=== PATIENT | female | born 1970 | race Caucasian/White ===

== ENCOUNTER 2017-06-24 05:30 | Day surgery (SDC) | payer BC ==
[~2017-06-24] VITALS: Ht 149.9 cm; Wt 66.2 kg
[2017-06-24] MEDS ORDERED: BUPIVACAINE /PF 0.25% 30 ML VIAL INJ ONE (05:31)
[2017-06-24] MEDS ORDERED: SEVOFLURANE 15 MIN GAS INH ONE (05:31)
[2017-06-24] MEDS ORDERED: GLYCOPYRROLATE 0.2 MG/ML VIAL IJ ONE (05:31)
[2017-06-24] MEDS ORDERED: PROPOFOL 200MG/ 20ML VIAL (DIPRIVAN) IV ONE (05:31)
[2017-06-24] MEDS ORDERED: NS IRRIG SOLN 1000 ML IR ONE (05:31)
[2017-06-24] MEDS ORDERED: MIDAZOLAM HCL 5 MG/ML VIAL (VERSED) IV ONE (05:31)
[2017-06-24] MEDS ORDERED: NEOSTIGMINE METHYLSULFATE 1 MG/ML, 10 ML VIAL IVP ONE (05:31)
[2017-06-24] MEDS ORDERED: LR 1,000 ML IV.SOLN IV ONE (05:31)
[2017-06-24] MEDS ORDERED: ONDANSETRON HCL 4 MG/2 ML VIAL IVP ONE (05:31)
[2017-06-24] MEDS ORDERED: fentaNYL CITRATE 250 MCG/5 ML AMP IV ONE (05:31)
[2017-06-24] MEDS ORDERED: ROCURONIUM BROMIDE 10 MG/ML (ZEMURON) IV ONE (05:31)
[2017-06-24] MEDS ORDERED: NS IRRIG SOLN 5000 ML IR ONE (05:31)
[2017-06-24 06:02] LABS: HCG,QUAL RESULT NEGATIVE (NEGATIVE)
[2017-06-24] MEDS ORDERED: CEFAZOLIN SOD 1 GM/ ISO 50 ML PREMIX IV ONE (07:00)
[2017-06-24] MEDS ORDERED: IOHEXOL 0 ML IV ONE (07:59)
[2017-06-24] MEDS ORDERED: LR 1,000 ML IV SCH (07:59)
[2017-06-24] MEDS ORDERED: HYDROmorphone 1 MG INJ. 1 MG/ML AMPUL IVP PRN ×3 (08:00→08:45)
[2017-06-24] MEDS ORDERED: METOCLOPRAMIDE HCL 10 MG/2 ML VIAL IVP PRN (08:00)
[2017-06-24] MEDS ORDERED: HYDROmorphone 2 MG/ML VIAL IVP PRN (08:00)
[2017-06-24] MEDS ORDERED: IOHEXOL 50 ML IV ONE (08:01)
[2017-06-24] MEDS ORDERED: D5/0.45 NS 1,000 ML IV SCH (08:43)
[2017-06-24] MEDS ORDERED: HYDROcodone/ACETAMIN 5-325 MG TAB (NORCO/ VICODIN) PO PRN ×2 (08:45)
[2017-06-24] MEDS ORDERED: HYDROmorphone 2 MG/ML VIAL ONE (09:26)
[2017-06-24 09:48] VITALS: BP_SYST 113
== END 2017-06-24 11:00 | disposition home or self-care (01) ==
LOC: SMU 05:30 → SDS 05:30
PROVIDERS: ATTEND Colon & Rectal Surgery
DX: K80.10 Calculus of gallbladder with chronic cholecystitis without obstruction (principal); J45.909 Unspecified asthma, uncomplicated; F32.9 Major depressive disorder, single episode, unspecified; F41.9 Anxiety disorder, unspecified; K21.9 Gastro-esophageal reflux disease without esophagitis; Z85.820 Personal history of malignant melanoma of skin; Z98.890 Other specified postprocedural states
CPT/HCPCS: 47563; 76000; 84703; 88304; C1727; C1758; J0690; J1170; J2250; J2405; J2704; J2710; J3010; J3490 ×2; J7120; Q9967

== ENCOUNTER 2021-08-06 09:28 | Emergency (ER) | payer BC ==
[~2021-08-06] VITALS: Ht 149.9 cm; Wt 73.9 kg
[2021-08-06 09:28] VITALS: BP_SYST 144
--- NOTE | 2021-08-06 09:28 | NUR ---
Patient triaged and placed in waiting room. VSS and patient appears in no acute distress at this time. Accompanied by SELF, awaiting available bed, and MD notified of need for MSE.
--- NOTE | 2021-08-06 09:45 | NUR ---
PT STATES SHE HAS BEEN BEING TREATED FOR VERTIGO AND RAN OUT OF MECLIZINE. STILL DIZZY.
--- NOTE | 2021-08-06 10:09 | NUR ---
DR GONZÁLES OUT TO TRIAGE ROOM FOR EVALUATION
[2021-08-06] MEDS ORDERED: MECLIZINE HCL 25 MG TABLET (ANITVERT) PO ONE (10:30)
[2021-08-06 10:58] LABS: BASOPHILS # (AUTO) 0.1 K/uL (0.0-0.2); BASOPHILS % (AUTO) 0.7 % (0.0-2.0); EOSINOPHILS # (AUTO) 0.1 K/uL (0.0-0.4); EOSINOPHILS % (AUTO) 1.3 % (0.0-4.0); HEMATOCRIT 42.9 % (36-48); HEMOGLOBIN 14.7 g/dL (12.0-16.0); LYMPHOCYTES # (AUTO) 1.9 K/uL (1.0-5.5); LYMPHOCYTES % (AUTO) 23.9 % (20.5-51.5); MEAN CORPUSCULAR HEMOGLOBIN 30 pg (27-31); MEAN CORPUSCULAR HGB CONC 34 % (32-36); MEAN CORPUSCULAR VOLUME 88 fL (79.0-98.0); MONOCYTES # (AUTO) 0.6 K/uL (0.0-1.0); NEUTROPHILS # (AUTO) 5.3 K/uL (1.8-7.7); NEUTROPHILS % (AUTO) 67.1 % (40.0-70.0); PLATELET COUNT (AUTO) 237 K/uL (130-430); RED BLOOD CELL COUNT(AUTO) 4.86 MIL/uL (4.2-6.2); RED CELL DISTRIBUTION WIDTH 13.9 % (9.0-15.0); WHITE BLOOD COUNT (AUTO) 7.9 K/uL (4.8-10.8)
[2021-08-06] MEDS ORDERED: ONDA-8 TL (10:58)
[2021-08-06] MEDS ORDERED: MECL-160 PO (10:58)
[2021-08-06 11:17] LABS: CALCIUM 8.5 mg/dL (8.4-11.0); CREATININE 1.19 mg/dL (0.55-1.30); POTASSIUM 4.2 mmol/L (3.5-5.1)
[2021-08-06 11:30] LABS: ALBUMIN 3.5 g/dL (3.4-4.8); TOTAL BILIRUBIN 0.3 mg/dL (0.0-1.0)
--- NOTE | 2021-08-06 12:01 | NUR ---
RESTING IN WAITING ROOM, NO CHANGES
--- NOTE | 2021-08-06 12:45 | NUR ---
DR GONZÁLES OUTSIDE TO SPEAK WITH PT.
--- NOTE | 2021-08-06 13:13 | NUR ---
Patient given written and verbal discharge instructions and verbalizes understanding. ER MD discussed with patient the results and treatment provided. Patient in stable condition. ID arm band removed. Rx of MECLIZINE, ZOFRAN given. Patient educated on pain management and to follow up with PMD. Pain Scale 0/10. Opportunity for questions provided and answered. Medication side effect fact sheet provided.
== END 2021-08-06 13:13 | disposition home or self-care (01) ==
LOC: SED 09:28
DX: H81.399 Other peripheral vertigo, unspecified ear (principal); Z79.899 Other long term (current) drug therapy
CPT/HCPCS: 36415; 80053; 84484; 85025; 99283; J8597; 99284